=== PATIENT | male | born 1995 | race Caucasian/White ===

== ENCOUNTER 2017-01-08 20:31 | Emergency (ER) | payer BC ==
[2017-01-08 20:39] VITALS: TEMP 98.2
[2017-01-08] MEDS ORDERED: IBUPROFEN 600 MG TAB PO ONE (20:46)
--- NOTE | 2017-01-08 21:13 | EDPHY ---
H & P Stated Complaint: Groin and wrist pain after soccer practice. - Personal History Current Tetanus/Diphtheria Vaccine: Unsure Current Tetanus Diphtheria and Acellular Pertussis (TDAP): Unsure - Medical/Surgical History Hx Asthma: No Hx Chronic Respiratory Disease: No Hx Diabetes: No Hx Cardiac Disease: No Hx Renal Disease: No Hx Cirrhosis: No Hx Alcoholism: No Hx HIV/AIDS: No Hx Splenectomy or Spleen Trauma: No Other PMH: Broken clavicle. - Social History Smoking Status: Former smoker Time Seen by Provider: 01/08/17 21:00 HPI/ROS: CHIEF COMPLAINT: Left wrist pain, bilateral inguinal pain HISTORY OF PRESENT ILLNESS: 21-year-old male arrives via private vehicle complaining of left wrist pain after he sprained his wrist playing soccer earlier tonight and also complaining of bilateral inguinal pain while he was playing soccer this evening. No trauma or fall. No testicle or urinary abnormality. No straddle or genital trauma. PHYSICAL EXAM (Prior to examination, patient consented to physical exam, hands were washed and my usual and customary physical exam procedures followed) 1) GENERAL: Well-developed, well-nourished, alert and oriented. Appears to be in no acute distress. 2) HEAD: Normocephalic 3) HEENT: sclera anicteric 4) LUNGS: Breathing comfortably. 5) SKIN: Intact 6) MUSCULOSKELETAL: Tender to palpation bilateral inguinal region reproducible with range of motion. No crepitus. No effusion. Soft compartments bilaterally. Distal DP PT pulses present and brisk with brisk capillary refill. Left wrist: Tender to palpation anatomic snuffbox. Radial ulnar median nerve function intact with brisk pulses. No visible deformity. 7) : Uncircumcised, no urethral discharge, bilateral testicles nontender nonswollen bilateral cremasteric reflex present and brisk. (Alexsander,Wally Carmeilta) Constitutional: Initial Vital Signs Temperature (C) 36.8 C 01/08/17 20:34 Heart Rate 80 01/08/17 20:34 Respiratory Rate 20 01/08/17 20:34 Blood Pressure 127/57 H 01/08/17 20:34 O2 Sat (%) 100 01/08/17 20:34 O2 Delivery Mode Room Air Allergies/Adverse Reactions: No Known Allergies Allergy (Unverified 01/08/17 20:38) Home Medications: Medication Instructions Recorded NK [No Known Home Meds] 01/08/17 Medical Decision Making Procedures: Procedure: Splint A left Velcro thumb spica splint was applied by ER hematology technician. After application of the splint I returned and re-examined the patient. The splint was adequately immobilizing the joint and distal to the splint the patient's circulation and sensation were intact. Patient shows no signs of compartment syndrome. Was given orthopedic precautions. (Wally Beltre) ED Course/Re-evaluation: Re-evaluation with serial exams. Also seen exam by Dr. Bay Mack. Creatinine kinase obtained on this patient , level 380, which is negative for acute rhabdomyolysis. Patient has been observed ambulating with stable steady gait. Discussed possibility of acute muscle strain. Doubt septic arthritis. Doubt dislocation. Recommend ibuprofen, cold packs, follow up with Orthopedics and given this referral information. He feels comfortable being discharged. Given usual and customary orthopedic precautions instructions (Wally Beltre) Differential Diagnosis: In no particular order including but not limited to wrist fracture, wrist sprain , compartment syndrome, pelvic fracture, slipped capital femoral epiphysis, septic arthritis (Wally Beltre) Other Provider: PHYSICIAN DOCUMENTATION: The patient was evaluated and managed by the Physician Perianesthesia Rn and myself. I have reviewed the chart and agree with the findings and plan of care as documented. In addition, I examined the patient myself at 2210. History confirmed as had been playing soccer regularly the last 3 weeks. He felt fine and started the game and then noticed a little bit during the game and then he stopped felt pain in both groins. Physical findings as follows: Able to walk independently without assistance. He has an increase in his pain with abduction of either hip. Compartments in both thighs are soft. Likely groin strain, discharge if he does not have evidence of significant rhabdomyolysis with CPK. Wrist splint and mandatory ortho followup with snuffbox tenderness. I am the secondary supervising physician. (Bay Mack) - Data Points Medications Given: Discontinued Medications Ibuprofen (Motrin) 600 mg PO EDNOW ONE Stop: 01/08/17 20:47 Last Admin: 01/08/17 20:49 Dose: 600 mg Departure - Departure Disposition: Home, Routine, Self-Care Clinical Impression: Groin strain Qualifiers: Encounter type: initial encounter Laterality: unspecified laterality Qualified Code(s): S76.219A - Strain of adductor muscle, fascia and tendon of unspecified thigh, initial encounter Left wrist sprain Qualifiers: Encounter type: initial encounter Qualified Code(s): S63.502A - Unspecified sprain of left wrist, initial encounter Condition: Good Instructions: Wrist Injury (ED), Groin Strain (ED) Additional Instructions: Return to the ER immediately if you experience discoloration, have worsening pain, numbness, tingling, or any other symptoms that concern you. If you received x-rays in the emergency department today, be advised, that ligamentous , tendon, muscular, and other non-bony injury cannot be fully ruled out. Try to keep your affected extremity elevated above the level of your chest, and keep cold packs on the affected area, for the next 48 hours. Adult Pain & Fever Control: We recommend Acetaminophen (Tylenol) and Ibuprofen (Motrin,Advil) for pain and fever control. When fever is high or pain severe, both drugs can be used at the same time, but at different intervals. Please note the time differences. Your dose is: Acetaminophen 650mg every 4 to 6 hours Ibuprofen 600mg every 6 hours with food Note: do not take Acetaminophen with Hydrocodone (Vicodin, Lortab) or Oycodone (Percocet). These medications also contain Acetaminophen. No more than 3000mg of Acetaminophen should be taken in 24 hours (for an adult). Referrals: Dion Knight MD [Medical Doctor] - As per Instructions
[2017-01-08 22:33] VITALS: BP 130/65; PULSE 65; RESP 15; O2SAT 98
[2017-01-08 23:08] LABS: CK-MB INTERPRETATION NEGATIVE (NEGATIVE); CREATINE KINASE-MB FRACTION 2.21 ng/mL (0.00-3.19)
== END 2017-01-08 23:26 | disposition home or self-care (01) ==
DX: S63.502A Unspecified sprain of left wrist, initial encounter (principal); S76.219A Strain of adductor muscle, fascia and tendon of unspecified thigh, initial encounter; X58.XXXA Exposure to other specified factors, initial encounter; Y99.8 Other external cause status; Y93.66 Activity, soccer; Z87.891 Personal history of nicotine dependence
CPT/HCPCS: L3807